=== PATIENT | female | born 1985 | race Caucasian/White ===

== ENCOUNTER → 2017-08-25 | Outpatient (CLI) | payer OTHER ==
[~2017-08-25] MED LIST: ALBU90OI INH; AMOX500 PO; Ativan1 MG PO; BENZ100A PO; CEPH500 PO; CIPR500 PO; CLIN300 PO; CODGUAEL PO; CRUTCH4 USE; DIPH50 PO; DOXY100 PO; ERYT.5TO OS; ESCI10 PO; FAMO20 PO; FLUV50; HYDACE5 PO; HYDPAM50 PO; IBUP200; IBUP800 PO; INDO50 PO; META800 PO; NAPR500 PO; NAPR550 PO; OXYACE5T PO; PENVK500 PO; PERM5TC TOP; PHENA200 PO; PROM25 PO; PSEU120ER PO; Permethrin60 GM TP; Prudoxin45 GM TP; RXERYTOPTH OP; RXHYDACE PO; RXPENVK250 PO; RXSULTRIDS PO; RXTRAM50 PO; SULTRIDS PO; TRAM50 PO; ZIPR40; Zithromax250 MG PO
[2017-08-25 19:30] LABS: Specimen Source CERVIX
[2017-08-27 03:08] LABS: Source Cervix
[2017-08-28 01:40] LABS: HPV Genotype 16 Not Detected (NOTDET); HPV Genotype 18 Not Detected (NOTDET)
[2017-09-05 11:26] LABS: HPV High Risk Other Not Detected (NOTDET)
== END | disposition home or self-care (01) ==
LOC: LAB SHORT 16:30 → LAB 16:30
PROVIDERS: Physician Assistant
DX: Z12.4 Encounter for screening for malignant neoplasm of cervix (principal); Z11.3 Encounter for screening for infections with a predominantly sexual mode of transmission
CPT/HCPCS: 87491; 87591; 87624; G0123

== ENCOUNTER 2017-11-30 15:42 | Emergency (ER) | payer OTHER ==
[~2017-11-30] VITALS: Ht 170.2 cm; Wt 96.2 kg
[2017-11-30] MEDS ORDERED: Zofran Odt4 MG PO (16:26)
== END 2017-11-30 16:36 | disposition left against medical advice (07) ==
LOC: ER 15:42
DX: R42 Dizziness and giddiness (principal); F31.9 Bipolar disorder, unspecified; F17.200 Nicotine dependence, unspecified, uncomplicated
CPT/HCPCS: 93005; 93010; 99283

== ENCOUNTER 2018-03-25 17:27 | Emergency (ER) | payer OTHER ==
[~2018-03-25] VITALS: Ht 170.2 cm; Wt 95.2 kg
[~2018-03-25 17:27] MED LIST changes: +Zofran Odt4 MG PO
[2018-03-25] MEDS ORDERED: Augmentin 875-1 EACH PO (18:10)
[2018-03-25] MEDS ORDERED: Norco 5-325 Ta1 EACH PO (18:10)
== END 2018-03-25 18:15 | disposition home or self-care (01) ==
LOC: ER 17:27
DX: K04.7 Periapical abscess without sinus (principal); F17.210 Nicotine dependence, cigarettes, uncomplicated
CPT/HCPCS: 99282

== ENCOUNTER 2018-12-17 21:02 | Emergency (ER) | payer OTHER ==
[~2018-12-17] VITALS: Ht 170.2 cm; Wt 113.4 kg
[~2018-12-17 21:02] MED LIST changes: +Augmentin 875-1 EACH PO; +Norco 5-325 Ta1 EACH PO
[2018-12-17] MEDS ORDERED: Amoxicillin875 MG PO (21:27)
== END 2018-12-17 21:46 | disposition home or self-care (01) ==
LOC: ER 21:02
DX: H65.92 Unspecified nonsuppurative otitis media, left ear (principal); F17.210 Nicotine dependence, cigarettes, uncomplicated
CPT/HCPCS: 99283; J1885

== ENCOUNTER 2020-03-23 23:21 | Emergency (ER) | payer OTHER ==
[~2020-03-23] VITALS: Ht 170.2 cm; Wt 120.2 kg
[~2020-03-23 23:21] MED LIST changes: +Amoxicillin875 MG PO
[2020-03-24] MEDS ORDERED: BACTRIM DS TAB1 EAC1 PO (00:07)
[2020-03-24] MEDS ORDERED: KEFLEX500 MG PO (00:07)
== END 2020-03-24 00:10 | disposition home or self-care (01) ==
LOC: ER 23:21
DX: L03.115 Cellulitis of right lower limb (principal); F17.210 Nicotine dependence, cigarettes, uncomplicated; F15.90 Other stimulant use, unspecified, uncomplicated
CPT/HCPCS: 99283; A9270-GY

== ENCOUNTER 2020-10-06 04:50 | Emergency (ER) | payer OTHER ==
[~2020-10-06] VITALS: Ht 170.2 cm; Wt 136.1 kg
[~2020-10-06 04:50] MED LIST changes: +BACTRIM DS TAB1 EAC1 PO; +KEFLEX500 MG PO
[2020-10-06] MEDS ORDERED: SULTRIDS PO (05:45)
== END 2020-10-06 05:39 | disposition home or self-care (01) ==
LOC: ER 04:50
DX: L03.115 Cellulitis of right lower limb (principal)
CPT/HCPCS: 99282; A9270-GY

== ENCOUNTER 2020-11-20 04:13 | Emergency (ER) | payer OTHER ==
[~2020-11-20] VITALS: Ht 172.7 cm; Wt 120.2 kg
[2020-11-20] MEDS ORDERED: Mupirocin22 GM TOP (05:06)
[2020-11-20] MEDS ORDERED: BACTRIM 400-801 EACH PO (05:06)
== END 2020-11-20 05:16 | disposition home or self-care (01) ==
LOC: ER 04:13
DX: L08.9 Local infection of the skin and subcutaneous tissue, unspecified (principal); F17.210 Nicotine dependence, cigarettes, uncomplicated
CPT/HCPCS: 99282; A9270

== ENCOUNTER 2023-05-13 02:40 | Emergency (ER) | payer OTHER ==
[~2023-05-13] VITALS: Ht 170.2 cm; Wt 117.9 kg
[~2023-05-13 02:40] MED LIST changes: +BACTRIM 400-801 EACH PO; +Mupirocin22 GM TOP
[2023-05-13 03:04] VITALS: BP 160/107
[2023-05-13 03:17] LABS: Source, Urine Clean Catch
[2023-05-13 03:21] LABS: BASOPHILS ABSOLUTE AUTO 0.08 K/mm3 (0.00-0.23); BASOPHILS PERCENT AUTO 1 % (0-2); EOSINOPHILS ABSOLUTE AUTO 0.23 K/mm3 (0.00-0.68); EOSINOPHILS PERCENT AUTO 2 % (0-6); Hematocrit 43.4 % (33.0-51.0); Hemoglobin 14.2 g/dL (11.5-16.0); IMMATURE GRAN ABSOLUTE AUTO 0.06 K/mm3 (0.00-0.10); IMMATURE GRAN PERCENT AUTO 1 % (0-1); LYMPHOCYTES ABSOLUTE AUTO 2.79 K/mm3 (0.84-5.20); LYMPHOCYTES PERCENT AUTO 22 % (21-46); MONOCYTES ABSOLUTE AUTO 0.66 K/mm3 (0.16-1.47); MONOCYTES PERCENT AUTO 5 % (4-13); Mean Corpuscular HGB 29.2 pg (26.0-34.0); Mean Corpuscular HGB Conc 32.7 g/dL (31.5-36.5); Mean Corpuscular Volume 89 fL (80-100); NEUTROPHILS ABSOLUTE AUTO 9.03 K/mm3 (1.96-9.15); NEUTROPHILS PERCENT AUTO 70 % (41-73); Platelet Count 344 K/mm3 (150-400); RDW Coefficient Variation 13.5 % (11.7-14.2); RDW Standard Deviation 44.4 fL (35.1-46.3); Red Blood Cell Count 4.87 M/mm3 (3.80-5.20); White Blood Cell Count 12.85 K/mm3 (4.00-11.30)
[2023-05-13 03:36] LABS: Albumin, Blood 3.5 g/dL (3.4-5.0); Albumin/Globulin Ratio 0.9 (0.8-1.8); Bilirubin, Total 0.2 mg/dL (0.1-1.0); Bun/Creatinine Ratio 22.3 (12.0-20.0); Creatinine, Blood 0.72 mg/dL (0.40-1.00); Globulin, Blood 3.7 g/dL (2.2-4.0); Potassium, Blood 3.8 mmol/L (3.5-5.5); Total Protein, Blood 7.2 g/dL (6.4-8.2)
[2023-05-13 03:36] LABS: Bilirubin, Urine Neg (Neg); Blood, Urine 1+ (Neg); Glucose Qualitative, Urine Neg (Neg); Ketones, Urine Neg (Neg); Leukocyte Esterase, Urine 3+ (Neg); Nitrite, Urine Pos (Neg); Protein, Urine Neg (Neg); Urobilinogen, Urine NORM (Normal)
[2023-05-13 04:05] LABS: Appearance, Urine Turbid (Clear); Color, Urine Pale Yellow (P-Yellow)
[2023-05-13 04:06] LABS: Bacteria Many /hpf; Red Blood Cells, Urine 0-2 /hpf (0-2); Squamous Epithelial Cells Few /hpf (Few)
[2023-05-13 04:07] LABS: Amorphous Light (0-Heavy)
== END 2023-05-13 04:19 | disposition home or self-care (01) ==
LOC: ER 02:40
PROVIDERS: Emergency Medicine
DX: N39.0 Urinary tract infection, site not specified (principal); Z20.2 Contact with and (suspected) exposure to infections with a predominantly sexual mode of transmission; F17.210 Nicotine dependence, cigarettes, uncomplicated
CPT/HCPCS: 80053; 81001; 81025; 85025; 87077; 87086; 87186; 99283

== ENCOUNTER 2024-12-24 21:45 | Emergency (ER) | payer OTHER ==
[~2024-12-24] VITALS: Ht 170.2 cm; Wt 117.9 kg
[2024-12-24 23:24] VITALS: BP 175/99
[2024-12-24] MEDS ORDERED: DOXY100 PO (23:36)
[2024-12-24] MEDS ORDERED: IBUP600 PO (23:36)
[2024-12-24] MEDS ORDERED: ACET500 PO (23:36)
== END 2024-12-25 | disposition home or self-care (01) ==
LOC: ER 21:45
DX: L02.31 Cutaneous abscess of buttock (principal); F17.210 Nicotine dependence, cigarettes, uncomplicated; Z59.00 Homelessness unspecified
CPT/HCPCS: 10060; 99283-25; A9270

== ENCOUNTER 2025-03-30 23:19 | Emergency (ER) | payer OTHER ==
[~2025-03-30] VITALS: Ht 170.2 cm; Wt 117.9 kg
[~2025-03-30 23:19] MED LIST changes: +ACET500 PO; +Doxycycline Mo100 M1 PO; +IBUP600 PO
[2025-03-31] VITALS: BP 160/82
== END 2025-03-31 00:10 | disposition home or self-care (01) ==
LOC: ER 23:19
DX: L03.116 Cellulitis of left lower limb (principal); R00.0 Tachycardia, unspecified; I10 Essential (primary) hypertension; F17.210 Nicotine dependence, cigarettes, uncomplicated; Z79.899 Other long term (current) drug therapy
CPT/HCPCS: 99283; A9270